=== PATIENT | male | born 1980 | race Caucasian/White ===

== ENCOUNTER 2017-01-13 21:44 | Emergency (ER) | payer SELFPAY ==
[2017-01-13 21:44] VITALS: BMI 27.1
[2017-01-13 21:59] VITALS: BP 146/84; PULSE 98; RESP 22; TEMP 98; O2SAT 98
--- NOTE | 2017-01-13 22:08 | C.PDOC ---
History Of Present Illness 36 y/o male comes in requesting detox from alcohol. Patient was seen at [facility] earlier today for a similar complaint with a negative blood work up, but no detox beds were available. Patient was d/c for detox from [facility] 4 days ago. Patient came here stating he is going through withdraw. Patient has stable vitals. Denies SI, HI, fever, chills, nausea, vomiting, or any other somatic complaints. Patient was seen by crisis workers and was told there were no available detox beds. Time Seen by Provider: 01/13/17 22:08 Chief Complaint (Nursing): Substance Abuse History Per: Patient History/Exam Limitations: no limitations Onset/Duration Of Symptoms: Days Current Symptoms Are (Timing): Still Present Suicide/Self Injury Attempted (Context): None Modifying Factor(s): Alcohol Severity: Mild Associated Symptoms: denies: Suicidal Thoughts, Suicidal Plan Involuntary Hold By: None Recent travel outside of the [place]: No Additional History Per: Patient Past Medical History Reviewed: Historical Data, Nursing Documentation, Vital Signs Vital Signs: Last Vital Signs Temp 98 F 01/13/17 21:55 Pulse 98 H 01/13/17 21:55 Resp 22 01/13/17 21:55 BP 146/84 01/13/17 21:55 Pulse Ox 98 01/13/17 22:32 - Medical History PMH: Post Traumatic Stress Disorder Denies: Diabetes, Hepatitis, HIV, HTN, Seizures, Sexually Transmitted Disease - [facility] Procedures INJECT/INFUSE NEC (07/18/14) Family History: States: Unknown Family Hx - Social History Hx Alcohol Use: Yes Hx Substance Use: Yes (ALCOHOL) - Immunization History Hx Tetanus Toxoid Vaccination: No Hx Influenza Vaccination: No Hx Pneumococcal Vaccination: No Review Of Systems Constitutional: Negative for: Fever, Chills Gastrointestinal: Negative for: Nausea, Vomiting Psych: Negative for: Suicidal ideation, Other (Homicidal ideation) Physical Exam - Physical Exam Appears: Non-toxic, No Acute Distress Skin: Warm, Dry Head: Normacephalic Eye(s): bilateral: Normal Inspection Neck: Supple Cardiovascular: Rhythm Regular Respiratory: No Rales, No Rhonchi, No Wheezing Gastrointestinal/Abdominal: Soft, No Tenderness Back: No CVA Tenderness Extremity: Normal ROM Extremity: Bilateral: Atraumatic Neurological/Psych: Oriented x3 (Alert and awake), Normal Speech, Normal Cognition Gait: Steady ED Course And Treatment O2 Sat by Pulse Oximetry: 98 (RA) Pulse Ox Interpretation: Normal Disposition Counseled Patient/Family Regarding: Studies Performed, Diagnosis - Disposition Referrals: Non [facility] Provider, [Non-Staff] - Disposition: ELOPEMENT - ER ONLY Disposition Time: 22:08 Condition: FAIR Forms: [facility] (Armenian) - Clinical Impression Clinical Impression: Alcohol abuse - Scribe Statement The provider has reviewed the documentation as recorded by the Scribe Dirk fam All medical record entries made by the Scribe were at my direction and personally dictated by me. I have reviewed the chart and agree that the record accurately reflects my personal performance of the history, physical exam, medical decision making, and the department course for this patient. I have also personally directed, reviewed, and agree with the discharge instructions and disposition.
== END 2017-01-13 23:04 | disposition left against medical advice (07) ==
LOC: C.ER 21:44 → SUPCPDRO 21:44 → C.ER 23:04
DX: F10.10 Alcohol abuse, uncomplicated (principal)